=== PATIENT | female | born 1995 | race Caucasian/White ===

== ENCOUNTER 2018-06-02 01:27 | Emergency (ER) | payer OTHER ==
[2018-06-02] MEDS ORDERED: ONDANSETRON DISINTEGRATING 4 MG TAB ONE (01:46)
[2018-06-02] MEDS ORDERED: ONDANSETRON DISINTEGRATING 4 MG TAB PO ONE (01:47)
--- NOTE | 2018-06-02 03:24 | EDPHY ---
H & P Stated Complaint: ETOH Time Seen by Provider: 06/02/18 03:23 HPI/ROS: HPI CHIEF COMPLAINT: Nausea vomiting after large amount of alcohol. HISTORY OF PRESENT ILLNESS: This is a 22-year-old female otherwise healthy no significant medical history presents emergency room nausea vomiting and alcohol intoxication. Patient states that she had a large amount of alcohol this evening she states multiple jump shots, margaritas, and other various alcohol drinks. She states she had these drinks between 6 and 11:00 p.m.. It is now 330 in the morning. She states around midnight she started feeling very nauseous vomiting multiple times. No abdominal pain no chest pain no shortness breath no diarrhea. No fever. Past Medical History: Denies significant medical history Past Surgical History: Denies significant surgical history Social History: Large amount of alcohol this evening. Family History: Noncontributory ROS REVIEW OF SYSTEMS: 10 Systems were reviewed and negative with the exception of the elements mentioned in the history of present illness. Exam Constitutional smells of alcohol, no distress, triage nursing summary reviewed , vital signs reviewed, awake/alert. Vital signs stable. Eyes normal conjunctivae and sclera, EOMI, PERRLA. HENT normal inspection, atraumatic, moist mucus membranes, no epistaxis, neck supple/ no meningismus, no raccoon eyes. Respiratory clear to auscultation bilaterally, normal breath sounds, no respiratory distress, no wheezing. Cardiovascular rate normal, regular rhythm, no murmur, no edema, distal pulses normal. Gastrointestinal soft, non-tender, no rebound, no guarding, normal bowel sounds, no distension, no pulsatile mass. Genitourinary no CVA tenderness. Musculoskeletal no midline vertebral tenderness, full range of motion, no calf swelling, no tenderness of extremities, no meningismus, good pulses, neurovascularly intact. Skin pink, warm, & dry, no rash, skin atraumatic. Neurologic awake, alert and oriented x 3, AAOx3, moves all 4 extremities equally, motor intact, sensory intact, CN II-XII intact, normal cerebellar, normal vision, intoxicated, smells of alcohol Psychiatric normal mood/affect. Heme/Lymph/Immune no lymphadenopathy. Differential Diagnosis: Includes but is not limited to in a particular order acute alcohol intoxication, dehydration, electrolyte disturbance, acute nausea vomiting. Medical Decision Making: Plan for this patient IV establishment IV fluid bolus , Zofran for nausea, serum alcohol level, electrolytes and re-evaluate. Re-evaluation: Serum alcohol level 144 at 4:11 a.m.. 0434: Re-examination at this time abdomen is soft nontender. Patient is feeling much better requesting discharge home. Patient p.o. Challenge well. She received 2 L of fluid here in emergency room. IV Zofran 4 mg She is feeling much better. I believe her nausea vomiting is due to alcohol intoxication. Much improved. Source: Patient - Personal History LMP (Females 10-55): Now Current Tetanus/Diphtheria Vaccine: Yes Current Tetanus Diphtheria and Acellular Pertussis (TDAP): Yes Tetanus Vaccine Date: < 10 YEARS - Medical/Surgical History Hx Asthma: No Hx Chronic Respiratory Disease: No Hx Diabetes: No Hx Cardiac Disease: No Hx Renal Disease: No Hx Cirrhosis: No Hx Alcoholism: No Hx HIV/AIDS: No Hx Splenectomy or Spleen Trauma: No Other PMH: TONSILECTOMY - Social History Smoking Status: Current every day smoker Constitutional: Initial Vital Signs Temperature (C) 36.6 C 06/02/18 01:29 Heart Rate 96 06/02/18 01:29 Respiratory Rate 16 06/02/18 01:29 Blood Pressure 120/71 06/02/18 01:29 O2 Sat (%) 97 06/02/18 01:29 O2 Delivery Mode Room Air Allergies/Adverse Reactions: latex Allergy (Verified 06/02/18 01:31) Home Medications: Medication Instructions Recorded Albuterol [Ventolin Hfa Inhaler] 2 puffs IH QID PRN #1 mdi 03/22/16 Bcp 03/22/16 Medical Decision Making - Data Points Laboratory Results: Laboratory Results 06/02/18 03:30 06/02/18 03:30 06/02/18 06/02/18 06/02/18 03:30 03:30 03:30 WBC 12.26 10^3/uL H 10^3/uL (3.80-9.50) RBC 4.59 10^6/uL 10^6/uL (4.18-5.33) Hgb 14.4 g/dL g/dL (12.6-16.3) Hct 42.0 % % (38.0-47.0) MCV 91.5 fL fL (81.5-99.8) MCH 31.4 pg pg (27.9-34.1) MCHC 34.3 g/dL g/dL (32.4-36.7) RDW 11.9 % % (11.5-15.2) Plt Count 226 10^3/uL 10^3/uL (150-400) MPV 10.6 fL fL (8.7-11.7) Neut % (Auto) 88.0 % H % (39.3-74.2) Lymph % (Auto) 9.1 % L % (15.0-45.0) [place] % (Auto) 2.4 % L % (4.5-13.0) Eos % (Auto) 0.0 % L % (0.6-7.6) Baso % (Auto) 0.2 % L % (0.3-1.7) Nucleat RBC Rel Count 0.0 % % (0.0-0.2) Absolute Neuts (auto) 10.79 10^3/uL H 10^3/uL (1.70-6.50) Absolute Lymphs (auto) 1.11 10^3/uL 10^3/uL (1.00-3.00) Absolute Monos (auto) 0.29 10^3/uL L 10^3/uL (0.30-0.80) Absolute Eos (auto) 0.00 10^3/uL L 10^3/uL (0.03-0.40) Absolute Basos (auto) 0.03 10^3/uL 10^3/uL (0.02-0.10) Absolute Nucleated RBC 0.00 10^3/uL 10^3/uL (0-0.01) Immature Gran % 0.3 % % (0.0-1.1) Immature Gran # 0.04 10^3/uL 10^3/uL (0.00-0.10) Sodium 144 mEq/L mEq/L (135-145) Potassium 4.4 mEq/L mEq/L (3.5-5.2) Chloride 112 mEq/L H mEq/L (97-110) Carbon Dioxide 23 mEq/l mEq/l (22-31) Anion Gap 9 mEq/L mEq/L (6-14) BUN 10 mg/dL mg/dL (7-23) Creatinine 0.6 mg/dL mg/dL (0.6-1.0) Estimated GFR > 60 Glucose 119 mg/dL H mg/dL (70-100) Calcium 9.3 mg/dL mg/dL (8.5-10.4) Lipase 42 IU/L IU/L (23-300) Beta HCG, Qual NEGATIVE Ethyl Alcohol 144 mg/dL H mg/dL (0-10) Medications Given: Discontinued Medications Sodium Chloride (Ns) 1,000 mls @ 0 mls/hr IV EDNOW ONE; Wide Open PRN Reason: Protocol Stop: 06/02/18 03:27 Last Admin: 06/02/18 03:34 Dose: 1,000 mls Sodium Chloride (Ns) 1,000 mls @ 0 mls/hr IV EDNOW ONE; Wide Open PRN Reason: Protocol Stop: 06/02/18 03:27 Last Admin: 06/02/18 03:34 Dose: 1,000 mls Ondansetron HCl (Zofran Odt) 4 mg PO EDNOW ONE Stop: 06/02/18 01:48 Last Admin: 06/02/18 01:48 Dose: 4 mg Departure - Departure Disposition: Home, Routine, Self-Care Clinical Impression: Vomiting, Alcohol intoxication Condition: Good Instructions: Alcohol Intoxication (ED), Acute Nausea and Vomiting (ED) Referrals: NONE *PRIMARY CARE P,. [Primary Care Provider] - As per Instructions
[2018-06-02] MEDS ORDERED: NS 1,000 ML IV ONE ×2 (03:26)
[2018-06-02 03:41] LABS: PLATELET COUNT 226 10^3/uL (150-400)
[2018-06-02 04:13] VITALS: BP 113/70
== END 2018-06-02 04:38 | disposition home or self-care (01) ==
DX: F10.920 Alcohol use, unspecified with intoxication, uncomplicated (principal); E86.9 Volume depletion, unspecified; F17.200 Nicotine dependence, unspecified, uncomplicated
CPT/HCPCS: G0480